=== PATIENT | male | born 1940 | race Caucasian/White ===

== ENCOUNTER 2017-02-06 06:06 | Inpatient (IN) | payer MEDICARE, BC ==
[~2017-02-06] VITALS: Ht 175.3 cm; Wt 87.7 kg
--- NOTE | ~2017-02-06 | CO ---
ADMIT: 02/06/2017 RM/LOC: 503 [facility] MR#: [id number] [address] [address] [place] [address] Consultation SEX: M AGE: 76 : 1940 DATE OF CONSULTATION: 02/06/2017 ATTENDING PHYSICIAN: Marck Costa CONSULTING PHYSICIAN: Jose Li MD REASON FOR CONSULT: Medical comanagement. HISTORY OF PRESENT ILLNESS: [place] is a 76-year-old white male who presents to the [facility] [place] today electively for an irrigation and debridement of a septic right trochanteric bursa. He is admitted by Dr. Costa. He has apparently had approximately 2 months of pain, redness, and swelling along the lateral right hip. X-rays of his hip previously showed a well-seated total hip arthroplasty. However, subsequent MRI of his right hip shows a markedly distended trochanteric bursa. He was subsequently admitted for bursa irrigation and debridement. He is seen postoperatively. At this time, his pain is well controlled. Cultures of the bursa fluid are pending. In addition to debriding the bursa, they actually did do a right hip capsulotomy and poly head exchange. PAST MEDICAL HISTORY: Remarkable for: 1. Kidney stones. 2. BPH with lower urinary tract obstructive symptoms. 3. Gastroesophageal reflux disease. 4. High cholesterol. PAST SURGICAL HISTORY: Previous right total hip arthroplasty and bilateral rotator cuff repair. Otherwise negative. ALLERGIES: NO SIGNIFICANT MEDICAL ALLERGIES. MEDICATIONS: His outpatient medications include: 1. Omeprazole 20 mg daily. 2. Flomax 0.4 mg daily. 3. Simvastatin 20 mg daily. 4. Fish oil 2000 mg daily. 5. Vitamin D 3000 units daily. SOCIAL HISTORY: He is . His is actually at home, sick at this time. He denies any current tobacco use, but he is a former smoker, he quit about 30 years ago. He denies any significant alcohol use. He denies any drug use whatsoever. He and his reside in [place]. [facility] most of [facility]. FAMILY HISTORY: Noncontributory. REVIEW OF SYSTEMS: As per HPI. All others reviewed and negative. PHYSICAL EXAMINATION: VITAL SIGNS: Blood pressure is 118/66, pulse 58, ADMIT: 02/06/2017 RM/LOC: 503 [facility] MR#: [id number] 2620 [facility] [address] [place] [id number] [place] [address] Consultation SEX: M AGE: 76 : 1940 respirations 18, temperature 97.0, and sat is 96%. GENERAL: He is awake, alert, no acute distress. Comfortable in the hospital bed. HEENT: Normocephalic and atraumatic. NECK: Supple. No lymphadenopathy. HEART: Regular rate and rhythm. No murmurs, gallops, or rubs. LUNGS: Clear to auscultation bilaterally. ABDOMEN: Soft, nontender, and nondistended. No rebound, guarding, or masses. EXTREMITIES: No cyanosis, clubbing, or edema. Examination of his right hip area shows a fairly large ABD dressing which is clean, dry, and intact. This was not disturbed. LABORATORY AND X-RAY DATA: CBC prior to surgery was unremarkable. Aerobic cultures and anaerobic cultures of his wound are pending. Gram stain is not showing any bacteria, rare white cells, many red cells. ASSESSMENT AND PLAN: 1. Septic right trochanteric bursitis status post right hip irrigation and debridement, with capsulotomy and polyethylene exchange and femoral head exchange with placement of antibiotic beads. 2. Gastroesophageal reflux disease. 3. Hyperlipidemia. PLAN: At this time, I will continue all of his home medications. He is very likely going to need 4-6 weeks of IV antibiotics. We will go ahead and consult Dr. Rooney with Infectious Disease for definitive recommendations on this. I agree with continuing the vancomycin pending his wound cultures. We will tailor his antibiotics accordingly after those return. Jose Li MD/ jose rafael JOB #: [id number] CC: Marck Costa, Attending Physician Mamta Naranjo, Family Physician
--- NOTE | ~2017-02-06 | HP ---
ADMIT: 02/06/2017 RM/LOC: [facility] MR#: [id number] [address] [facility] [address] [place] [id number] ARMEN, [place] [address] Pre-OP History and Physical SEX: M AGE: 76 : 1940 DATE OF SERVICE: CHIEF COMPLAINT: Hip pain. HISTORY OF PRESENT ILLNESS: The patient is a 76-year-old male. He has been having issues with his right hip. We saw him back on December 13. Approximately 2 weeks before that, he had a slip and fall and injured his hip. He developed some pain on the lateral hip with a bruise. X-rays at that point showed a well- seated total hip arthroplasty with no concerns. Eventually when he followed up, he developed some more pain on the lateral right hip and a little bit of erythema over the hip. Initially did not have any fluctuance over the hip. We eventually ordered lab tests. His CRP and sedimentation rate were slightly elevated. We treated him with a short course of antibiotics and things have not improved or resolved. His sedimentation rate was 56 and CRP 1.98. After a course of antibiotics, things did not improve, we did a CT scan and MRI which shows a small fluid collection over the lateral bursa and likely has septic bursitis. He is now being admitted for right hip bursa irrigation and debridement. PAST MEDICAL HISTORY: Includes hypertension and hypercholesterolemia. MEDICATIONS: Include: 1. Tylenol. 2. Omeprazole. 3. Simvastatin. ALLERGIES: NONE. SOCIAL HISTORY: Lives at home. REVIEW OF SYSTEMS: Negative. PHYSICAL EXAMINATION: GENERAL: Healthy appearing male. EXTREMITIES: He has some generalized erythema of the lateral hip. No pain with hip range of motion. Really no significant fluctuance palpable. Leg is otherwise neurovascularly intact. DIAGNOSTIC DATA: X-rays AP and lateral of the right hip are negative. No osteolysis or anything else concerning. MRI shows a fluid collection on the ADMIT: 02/06/2017 RM/LOC: [facility] MR#: [id number] [facility] [address] [address] [place] [address] Pre-OP History and Physical SEX: M AGE: 76 : 1940 lateral hip and does not appear to be deep around the prosthesis. No fluid collection around the hip itself. IMPRESSION: Probable septic right trochanteric bursitis. PLAN: At this point, we are just going to proceed with irrigation and debridement. Hopefully it does not proceed deeply through the capsule around the prosthesis. Likely obtain intraoperative cultures if the fluid looks concerning. He is aware of the risks, benefits, and options and has agreed to proceed. Plan on overnight stay, possible longer if we needed to proceed with IV antibiotic treatment. Marck Costa MD/ jose rafael JOB #: [id number] CC: Marck Costa, Attending Physician UNKNOWN, Family Physician
--- NOTE | 2017-02-08 13:18 | CO ---
ADMIT: 02/06/2017 RM/LOC: 503 [facility] MR#: [id number] 2620 [facility] [address] [place] [phone] [place] [address] Consultation SEX: M AGE: 76 : 1940 DATE OF CONSULTATION: 02/07/2017 ATTENDING PHYSICIAN: Marck Costa CONSULTING PHYSICIAN: Melanie Rooney MD REASON FOR CONSULT: Antibiotic management. Thank you, Dr. Li, for the consult and involving me in this patient's care. HISTORY OF PRESENT ILLNESS: Mr. Redmond is a 76-year-old man, who underwent a right hip replacement around 2-1/2 years ago. Around December, he had a fall on his knees and per the patient, he did not injure his right hip, but subsequently started noticing increased redness and pain around his right hip joint. He was seen by Dr. Costa, who did ESR and CRP, which was slightly elevated and also treated him with short course of antibiotics without any improvement. Hence, a CT scan and MRI were done, which showed a small fluid collection and severe right-sided trochanteric bursitis. Hence, he was admitted yesterday and underwent right hip irrigation and debridement with capsulotomy and polyethylene exchange and femoral head exchange. In the OR, there was fibrinous purulent material noted around his fascial line and around the greater trochanter with an extended abscess towards his ilium. Postoperatively, the patient is doing well and denies any complaints at this time. He was started on vancomycin and Dr. Li started him on cefepime today. PAST MEDICAL HISTORY: 1. Gastroesophageal reflux disease. 2. Hypercholesterolemia. 3. Kidney stones. 4. BPH. PAST SURGICAL HISTORY: 1. Right total hip arthroplasty. 2. Bilateral rotator cuff repair. FAMILY HISTORY: Significant for pancreatic cancer in his mother. ALLERGIES: NO KNOWN DRUG ALLERGIES. CURRENT MEDICATIONS: Include: 1. Flomax. 2. Huslia-3. 3. Protonix. 4. Vitamin D. 5. Zocor. 6. Vancomycin 1.25 g q.12 hours. 7. Cefepime 2 g q.12 hours. ADMIT: 02/06/2017 RM/LOC: 503 [facility] MR#: [id number] 2620 [facility] [address] [place], [place] [address] ALEX REDMOND [address] [place] [id number] Consultation SEX: M AGE: 76 : 1940 SOCIAL HISTORY: He is . Denies any smoking or recreational drug use. Drinks alcohol occasionally. Lives at [place]. REVIEW OF SYSTEMS: A 10-point review of systems negative except as mentioned in HPI. PHYSICAL EXAMINATION: VITAL SIGNS: Current temperature 99.6, heart rate 77, respirations 20, blood pressure 106/62, 98% on room air. GENERAL: No acute distress. HEENT: Head is normocephalic and atraumatic. Extraocular movements intact. CHEST: Clear to auscultation bilaterally. No wheezes, rales, or rhonchi. CARDIOVASCULAR: S1 and S2 heard. No murmurs, rubs, or gallops. ABDOMEN: Soft and nontender. Active bowel sounds. MUSCULOSKELETAL: Right hip dressing noted. Mild tenderness to palpation. PSYCH: Normal affect. Memory intact. DATA REVIEW: The OR cultures are still pending. The Gram stain showed rare wbc's and many rbc's, and no bacteria. ASSESSMENT AND PLAN: 1. Right septic trochanteric bursitis, status post I and D and femoral head exchange, postop day #1. The OR cultures are still pending. The late infection is likely caused by coagulase-negative Staphylococcus species, Staphylococcus aureus, viridans strep, or Propionibacterium, it is less likely from gram-negative alanis infection. However, with the recent trauma, it is unclear whether he got bacteria introduced during the trauma. We will wait for the OR culture results and continue vancomycin and cefepime for now. He will need IV antibiotics for a while. 2. Hypercholesteremia. 3. Benign prostatic hypertrophy. Thank you for the consult and I will continue to follow the patient. Melanie Rooney MD/ jose rafael JOB #: [id number] CC: Marck Costa, Attending Physician Mamta Naranjo, Family Physician
[2017-02-10] MEDS ORDERED: ZYRTEC DPS10 MG PO (12:58)
[2017-02-10] MEDS ORDERED: PROVENTIL2.5 MG/0.5 IH (12:58)
[2017-02-10] MEDS ORDERED: NEURONTIN DPS300 MG PO (12:58)
[2017-02-10] MEDS ORDERED: IRON325 M1 PO (12:59)
[2017-02-10] MEDS ORDERED: HUMALOG KW200 UNIT/1 SQ ×2 (12:59)
[2017-02-10] MEDS ORDERED: LANTUS100 UNITS/ SQ (13:00)
[2017-02-10] MEDS ORDERED: LEVOTHYROXINE50 MCG PO (13:00)
[2017-02-10] MEDS ORDERED: CYMBALTA30 MG PO (13:00)
[2017-02-10] MEDS ORDERED: ZOFRAN4 MG PO (13:01)
[2017-02-10] MEDS ORDERED: MULTIPLE VITAM1 EACH PO (13:01)
[2017-02-10] MEDS ORDERED: ZANTAC DPS150 MG PO (13:01)
[2017-02-10] MEDS ORDERED: PROTONIX40 MG PO (13:01)
[2017-02-10] MEDS ORDERED: ULTRAM DPS50 MG PO (13:02)
[2017-02-11] MEDS ORDERED: FLOMAX DPS0.4 MG PO (10:04)
[2017-02-11] MEDS ORDERED: ZOCOR DPS20 MG PO (10:05)
[2017-02-11] MEDS ORDERED: PRILOSEC DPS20 MG PO (10:05)
[2017-02-11] MEDS ORDERED: VITAMIN D31000 UNIT PO (10:05)
[2017-02-11] MEDS ORDERED: OMEGA 3 1,0001 EACH PO (10:05)
[2017-02-11] MEDS ORDERED: PERCOCET 5-3251 EACH PO (10:06)
[2017-02-11] MEDS ORDERED: MAXIPIME1 GM IV (10:06)
[2017-02-11] MEDS ORDERED: SENOKOT-S TABL1 EACH PO (10:07)
[2017-02-11] MEDS ORDERED: DULCOLAX-DPS10 MG PO (10:07)
[2017-02-11] MEDS ORDERED: TYLENOL DPS325 MG PO (10:07)
--- NOTE | 2017-02-12 07:15 | OR ---
ADMIT: 02/06/2017 RM/LOC: 503 [facility] MR#: [id number] [address] [address] [place] [address] Operative/Delivery Room Report SEX: M AGE: 76 : 1940 SURGERY DATE: 02/06/2017 SURGEON: Marck Costa MD PREOPERATIVE DIAGNOSIS: Right septic trochanteric bursitis. POSTOPERATIVE DIAGNOSES: 1. Right septic trochanteric bursitis. 2. Possible deep infection. PROCEDURES: 1. Right hip irrigation and debridement. 2. Capsulotomy with polyethylene exchange and femoral head exchange. 3. Placement of antibiotic beads. AUTOMATIC OUTSOLE CUTTER: Ronen Maravilla PA-C ANESTHESIA: General. COMPLICATIONS: None. BLOOD LOSS: 200 mL. DESCRIPTION OF PROCEDURE: The patient was taken to the operating room, received a general anesthetic. Placed in lateral decubitus position. The right hip was prepped and draped in a fashion. A small elliptical incision was made over the old incision, removed the scar tissue. We carried dissection to subcutaneous tissue. Once we got into the trochanteric area, there was a little bit of fibrous purulent material just protruding through the fascia line. We went ahead and opened up the deep fascia. At that point, there was some purulent material around the greater trochanteric area with an abscess extending up towards the ileum. We went ahead, did a thorough debridement of all these areas. We did obtain a tissue swab, actual formal tissue culture and fluid culture from this material. Once we had a complete thorough debridement performed, we looked at the actual posterior capsule. The actual posterior capsule was thin, but it was actually intact overlying ADMIT: 02/06/2017 RM/LOC: 503 [facility] MR#: [id number] [address] [place], [place] [id number] [place] [id number] ALEX [address] [place] [address] Operative/Delivery Room Report SEX: M AGE: 76 : 1940 the actual prosthesis. We did not see any definite penetration of the posterior capsular area. Once we had completed our debridement, though to be safe, we went ahead and did a capsulotomy. There was no fluid within the hip joint itself, luckily. Again just to be safe, we went ahead and dislocated the hip, removed the femoral head and the polyethylene liner and did a poly exchange and femoral head exchange. At that point, we reduced the hip, irrigated out the wounds a final time. We repaired the posterior capsular structures with #5 Tycron. We placed antibiotic beads throughout the deep space. At that point, closed the fascia with interrupted and running 0 Vicryl suture, subcu with 2-0 Vicryl, michelle on the skin. We applied sterile dressings. Taken to recovery room in stable condition. No complications. Marck Costa MD/ jose rafael JOB #: [id number] CC: Marck Costa, Attending Physician Mamta Naranjo, Family Physician
== END 2017-02-09 15:05 | DRG 467 ==
LOC: 5MS 06:06 → WOR 06:06 → 5MS 10:48
PROVIDERS: ADMIT Orthopaedic Surgery
DX: T84.51XA Infection and inflammatory reaction due to internal right hip prosthesis, initial encounter (principal); M00.9 Pyogenic arthritis, unspecified; I10 Essential (primary) hypertension; K21.9 Gastro-esophageal reflux disease without esophagitis; E78.00 Pure hypercholesterolemia, unspecified; N40.0 Benign prostatic hyperplasia without lower urinary tract symptoms